=== PATIENT | male | born 1975 | race Caucasian/White ===

== ENCOUNTER → 2017-07-13 19:30 | Outpatient (CLI) | payer BC, SELFPAY ==
[2017-07-13 20:23] LABS: T4 Free Direct 1.32 ng/dL (0.76-1.46); Thyroid Stim Hormone (TSH) 1.91 uIU/mL (0.358-3.74)
[2017-07-17 07:41] LABS: Anti-Thyroglobulin AB < 1.0 IU/mL (0.0-0.9); Thyroglobulin, Serum Qt. 0.8 ng/mL (1.4-29.2)
== END ==
DX: E89.0 Postprocedural hypothyroidism (principal); C73 Malignant neoplasm of thyroid gland
CPT/HCPCS: 36415; 84432; 84439; 84443; 86800

== ENCOUNTER 2017-10-16 21:09 | Emergency (ER) | payer BC, SELFPAY ==
[2017-10-16 21:09] VITALS: BP 136/64; PULSE 67; RESP 16; TEMP 36.6; O2SAT 97; BMI 25.8
--- NOTE | 2017-10-16 21:10 | ED.RN ---
NO OLD EKG'S IN MUSE.
--- NOTE | 2017-10-16 21:23 | EKG12_ITS ---
Test Reason : PALPITATIONS Blood Pressure : / mmHG Vent. Rate : 056 BPM Atrial Rate : 056 BPM P-R Int : 164 ms QRS Dur : 094 ms QT Int : 380 ms P-R-T Axes : 058 047 045 degrees QTc Int : 366 ms Sinus bradycardia Nonspecific ST abnormality Abnormal ECG Confirmed by ARTEMIO WALTERS, ANGELO ([id number]), electronic news gathering editor ENIO BARFIELD ([id number]) on 10/18/2017 3:41:57 PM Referred By: [email or web address] Confirmed By:ANGELO ULLOA MD
--- NOTE | 2017-10-16 21:32 | ED.DCSUM_ITS ---
- ER Visit Summary Date of Service: 10/16/17 Chief Complaint: Palpitations History of Present Illness: The patient is a 42 M presenting with palpitations. Patient states that he was sitting and began to have a racing irregular heart sensation. This lasted intermittently for approximately 45 minutes. His symptoms are currently resolved. He states he did drink a lot of caffeine today , he states he drank 5, 5 hour energy drinks. He is on Synthroid due to previous thyroidectomy secondary to thyroid cancer. He states his thyroid is followed by post partum nurse in [place]. He is also on testosterone but he states that he has been taking this for several years. Denies chest pain or shortness of breath. Denies other complaints. Physical Examination: Vitals are stable. Patient is afebrile. Alert no acute distress. HEENT exam is unremarkable. Neck is supple. Lungs are clear and equal bilaterally. Heart is regular rate and rhythm. Abdomen is soft nontender nondistended. Extremities are unremarkable. Skin is warm and dry. No focal neurologic deficit. Remainder of exam is unremarkable. Emergency Department Course and Treatment: EKG is sinus bradycardia rate of 56, no acute ischemic changes. Patient declined chest x-ray. CBC, chemistries unremarkable other than potassium 3.2, creatinine 1.33. Glucose 120. TSH is normal. Troponin is negative. Patient declined repeat troponin. He is feeling improved. He will decrease his caffeine intake. He is advised to follow up with Dr Millard loss prevention/safety district manager for no doc. Advised return ED for worsening complaints. Disposition: Discharged home Impression: Palpitations This note was generated with [employer] dictation software. It may contain incorrect words, spelling, and punctuation that were not noted in review of the chart prior to signing ED Disposition - Plan for ED Patient: Chief Complaint: Palpitations Referrals: Care Physician,No Primary [Primary Care Provider] -
[2017-10-16 21:46] LABS: Absolute Lymphocyte Count 1.53 X10^3/ul (0.83-4.51); Absolute Neutrophil Count 2.4 X10^3/uL (2.0-7.7); Basophil# 0.02 X10^3/uL; Basophil% 0.5 % (0-1); Eosinophil# 0.09 X10^3/uL; Hematocrit 39.9 % (40-54); Lymphocyte # 1.53 X10^3/ul (4.0); Lymphocyte % 34.5 % (19-41); Mean Corp Hgb Conc 35.1 g/gl (32-36); Mean Corpuscular Hgb 29.4 pg (27.0-32.0); Mean Corpuscular Volume 83.8 fL (80-94); Monocyte# 0.38 X10^3/uL; Monocyte% 8.6 % (0-10); Neutrophil # 2.41 X10^3/uL (2.7-7.7); Neutrophil % 54.2 % (47-70); POSITIVE COUNT NO; POSITIVE DIFFERENTIAL NO; POSITIVE MORPHOLOGY NO; Platelet Count 214 K/mm3 (150-450); RBC Distribution Width CV 12.9 % (11.6-14.6); RBC Distribution Width SD 39.3 fl (35.1-43.9); Red Blood Count 4.76 M/mm3 (4.6-6.2); White Blood Count 4.4 K/mm3 (4.4-11.0)
[2017-10-16 21:48] VITALS: O2SAT 99
[2017-10-16 22:09] LABS: Anion Gap 7 (5-15); BUN 18 mg/dL (7-18); BUN/Creat Ratio 13.5 RATIO (10-20); Calcium,Total 8.9 mg/dL (8.5-10.1); Chloride 105 mmol/L (98-107); Creatinine, Serum 1.33 mg/dL (0.70-1.30); EST Glomerular Filtration Rate 63 mL/min (>60); Est Glom Filt Rate - Afr Amer 77 mL/min (>60); Estimated Creatinine Clearance 71.43 ml/min; Glucose 120 mg/dL (74-106); Potassium 3.2 mmol/L (3.5-5.1); Sodium Level 141 mmol/L (136-145); Thyroid Stim Hormone (TSH) 2.28 uIU/mL (0.358-3.74)
--- NOTE | 2017-10-16 22:28 | ED.DEP ---
ED Disposition - Plan for ED Patient: Chief Complaint: Palpitations Instructions: ED Palpitations Referrals: Care Physician,No Primary [Primary Care Provider] - Freeman,Maranda, DO [NON-STAFF] -
[2017-10-16 22:36] VITALS: PULSE 62; RESP 14; RESP 16; O2SAT 97
== END 2017-10-16 22:37 | disposition home or self-care (01) ==
PROVIDERS: Emergency Provider Emergency Medicine
DX: R00.2 Palpitations (principal); Z87.891 Personal history of nicotine dependence; Z85.850 Personal history of malignant neoplasm of thyroid
CPT/HCPCS: 80048; 84443; 84484; 85025; 93005; 99285

== ENCOUNTER → 2018-01-25 22:15 | Outpatient (CLI) | payer BC, SELFPAY ==
[2018-01-25 23:35] LABS: T4 Free Direct 1.05 ng/dL (0.76-1.46)
== END ==
DX: E89.0 Postprocedural hypothyroidism (principal)
CPT/HCPCS: 84439; 84443